=== PATIENT | male | born 1940 | race Caucasian/White ===

== ENCOUNTER 2018-05-05 20:51 | Emergency (ER) | payer OTHER, BC ==
[~2018-05-05] VITALS: Ht 182.9 cm; Wt 101.4 kg
[2018-05-05 21:03] VITALS: Ht 182.9 cm; Wt 101.4 kg
[2018-05-05 22:50] VITALS: BP 158/108
== END 2018-05-05 22:50 | disposition home or self-care (01) ==
LOC: ED 20:51
DX: S62.102A Fracture of unspecified carpal bone, left wrist, initial encounter for closed fracture (principal); S52.592K Other fractures of lower end of left radius, subsequent encounter for closed fracture with nonunion; M25.531 Pain in right wrist; I10 Essential (primary) hypertension; Z86.718 Personal history of other venous thrombosis and embolism; W01.198A Fall on same level from slipping, tripping and stumbling with subsequent striking against other object, initial encounter; Y93.01 Activity, walking, marching and hiking; Y92.488 Other paved roadways as the place of occurrence of the external cause; Y99.8 Other external cause status; X58.XXXD Exposure to other specified factors, subsequent encounter